=== PATIENT | female | born 1995 | race Hispanic/Latino ===

== ENCOUNTER 2021-09-22 19:45 | Emergency (ER) | payer OTHER ==
[~2021-09-22] VITALS: Ht 162.6 cm; Wt 103.0 kg
[2021-09-22 20:48] LABS: APPEARANCE,URINE Clear (CLEAR); BILIRUBIN,URINE Negative (NEGATIVE); COLOR,URINE Yellow (YELLOW); GLUCOSE, URINE (UA) Negative (NEGATIVE); KETONES,URINE 15 mg/dL (NEGATIVE); LEUKOCYTE ESTERASE ,URINE Negative (NEGATIVE); NITRATE,URINE Negative (NEGATIVE); OCCULT BLOOD,URINE Negative (NEGATIVE); PROTEIN,URINE Negative (NEGATIVE); UROBILINOGEN,URINE 0.2 mg/dL (0.2-1.0)
[2021-09-22 20:52] LABS: HCG,QUAL RESULT POSITIVE (NEGATIVE)
[2021-09-22] MEDS ORDERED: ACETAMINOPHEN 500 MG TABLET ONE (21:04)
[2021-09-22] MEDS ORDERED: 0.9%NACL 1000ML 1,000 ML IV ONE ×2 (21:22→21:30)
[2021-09-22] MEDS ORDERED: ONDANSETRON 4MG INJ ONE (21:22)
[2021-09-22] MEDS ORDERED: ONDANSETRON 4MG INJ IVP ONE (21:30)
[2021-09-22] MEDS ORDERED: ACETAMINOPHEN 500 MG TABLET PO ONE (21:30)
[2021-09-22] MEDS ORDERED: ONDA4TAB10 PO (22:15)
[2021-09-22] MEDS ORDERED: ACET-66 PO (22:15)
[2021-09-22 23:15] VITALS: BP 99/60
== END 2021-09-22 23:18 | disposition home or self-care (01) ==
LOC: EDH 19:45
DX: U07.1 COVID-19 (principal); J45.909 Unspecified asthma, uncomplicated; Z79.899 Other long term (current) drug therapy
CPT/HCPCS: 81003; 81025; 87635; 96361; 96374; 99283; C9803; J2405; J7030

== ENCOUNTER 2022-01-11 10:53 | Observation (INO) | payer MEDICAID, OTHER ==
[~2022-01-11] VITALS: Ht 162.6 cm; Wt 102.5 kg
[~2022-01-11 10:53] MED LIST: ACET-66 PO; ONDA4TAB10 PO
[2022-01-11 10:55] VITALS: BP 110/62
[2022-01-11 11:52] LABS: APPEARANCE,URINE CLEAR (CLEAR); BILIRUBIN,URINE NEGATIVE (NEGATIVE); COLOR,URINE YELLOW (YELLOW); GLUCOSE, URINE (UA) NEGATIVE (NEGATIVE); KETONES,URINE NEGATIVE (NEGATIVE); LEUKOCYTE ESTERASE ,URINE NEGATIVE (NEGATIVE); NITRATE,URINE NEGATIVE (NEGATIVE); OCCULT BLOOD,URINE NEGATIVE (NEGATIVE); PH,URINE 5.5 (5.0-8.0); PROTEIN,URINE NEGATIVE (NEGATIVE); UROBILINOGEN,URINE 0.2 mg/dL (0.2-1.0)
[2022-01-11] MEDS ORDERED: LACTATED RINGERS 1000ML IV SCH (12:00)
== END 2022-01-11 13:17 | disposition home or self-care (01) ==
LOC: EDH 10:53 → LDH 10:54
PROVIDERS: ADMIT Internal Medicine; ATTEND Internal Medicine
DX: O26.893 Other specified pregnancy related conditions, third trimester (principal); R10.30 Lower abdominal pain, unspecified; O99.891 Other specified diseases and conditions complicating pregnancy; M54.50 Low back pain, unspecified; Z3A.28 28 weeks gestation of pregnancy
CPT/HCPCS: 96360; 59025; 81003; G0378 ×2; G0379

== ENCOUNTER 2022-04-26 00:39 | Emergency (ER) | payer MEDICAID ==
[~2022-04-26] VITALS: Ht 162.6 cm; Wt 99.8 kg
[2022-04-26 00:56] LABS: BASOPHILS % (AUTO) 0.6 % (0.0-5.0); EOSINOPHILS % (AUTO) 2.3 % (0.0-8.0); HEMATOCRIT 38.3 % (36-48); LYMPHOCYTES % (AUTO) 57.7 % (21.0-51.0); MEAN CORPUSCULAR HEMOGLOBIN 26.7 pg (27.0-33.0); MEAN CORPUSCULAR HGB CONC 32.1 g/dL (32.0-36.0); MEAN CORPUSCULAR VOLUME 83.1 fL (79-99); NEUTROPHILS % (AUTO) 31.8 % (40.0-77.0); PLATELET COUNT (AUTO) 408 K/uL (130-400); RED BLOOD CELL COUNT(AUTO) 4.61 MIL/uL (4.00-5.50); RED CELL DISTRIBUTION WIDTH 13.2 % (11.0-15.5); WHITE BLOOD COUNT (AUTO) 9.3 K/uL (4.8-10.8)
[2022-04-26] MEDS ORDERED: MORPHINE 4 MG SYG IVP ONE (01:00)
[2022-04-26] MEDS ORDERED: ONDANSETRON 4MG INJ IVP ONE (01:00)
[2022-04-26 01:03] LABS: APPEARANCE,URINE CLEAR (CLEAR); BILIRUBIN,URINE NEGATIVE (NEGATIVE); COLOR,URINE YELLOW (YELLOW); GLUCOSE, URINE (UA) NEGATIVE (NEGATIVE); KETONES,URINE NEGATIVE (NEGATIVE); LEUKOCYTE ESTERASE ,URINE 250 Leu/uL (NEGATIVE); NITRATE,URINE NEGATIVE (NEGATIVE); OCCULT BLOOD,URINE SMALL (NEGATIVE); PROTEIN,URINE 20 mg/dL (NEGATIVE)
[2022-04-26 01:14] LABS: MUCUS,URINE RARE LPF (None Seen); RBC,URINE 26-50 /HPF (0-1); SQUAMOUS EPITHELIAL CELL,UR FEW /HPF (0-2)
[2022-04-26 01:27] LABS: CREATININE 0.7 mg/dL (0.5-1.5); POTASSIUM 3.2 mmol/L (3.5-5.1)
[2022-04-26 01:31] LABS: ALBUMIN 3.7 g/dL (3.5-5.0); TOTAL PROTEIN, SERUM 7.9 g/dL (6.0-8.3)
[2022-04-26] MEDS ORDERED: CEFTRIAXONE 1G VIAL ONE (01:52)
[2022-04-26] MEDS ORDERED: KETOROLAC 30MG VIAL (30MG/ML) ONE (01:52)
[2022-04-26] MEDS ORDERED: KETOROLAC 30MG VIAL (30MG/ML) IVP ONE (02:00)
[2022-04-26] MEDS ORDERED: CEFTRIAXONE 1G VIAL IVP ONE (02:00)
[2022-04-26] MEDS ORDERED: LACTATED RINGERS 1000ML 1,000 ML IV ONE ×2 (02:00)
[2022-04-26] MEDS ORDERED: IBUP-2070 PO (03:13)
[2022-04-26] MEDS ORDERED: CEPH500B PO (03:13)
[2022-04-26 03:25] VITALS: BP 115/67
[2022-04-26] MEDS ORDERED: KCL 20 MEQ ERTAB PO ONE (03:30)
== END 2022-04-26 03:33 | disposition home or self-care (01) ==
LOC: EDH 00:39
DX: K80.50 Calculus of bile duct without cholangitis or cholecystitis without obstruction (principal); Z79.1 Long term (current) use of non-steroidal anti-inflammatories (NSAID); E87.6 Hypokalemia
CPT/HCPCS: 99284; 96374; 96375; 76705; 96361; 80053; 83690; 85025; 87077; 87088; 87186; 81001; 81025; 36415; J7120; J0696; J2405; J2270; J1885

== ENCOUNTER 2022-04-28 03:54 | Emergency (ER) | payer MEDICAID ==
[~2022-04-28] VITALS: Ht 162.6 cm; Wt 100.7 kg
[~2022-04-28 03:54] MED LIST changes: +CEPH500B PO; +IBUP-2070 PO
[2022-04-28] MEDS ORDERED: MORPHINE 2 MG SYG IVP ONE (04:30)
[2022-04-28] MEDS ORDERED: LACTATED RINGERS 1000ML 1,000 ML IV ONE (04:30)
[2022-04-28] MEDS ORDERED: ONDANSETRON 4MG INJ IVP ONE (04:30)
[2022-04-28] MEDS ORDERED: KETOROLAC 15MG/ML VIAL (15MG/ML) IV ONE (04:30)
[2022-04-28 05:12] LABS: BASOPHILS % (AUTO) 0.8 % (0.0-5.0); EOSINOPHILS % (AUTO) 2.3 % (0.0-8.0); HEMATOCRIT 36.2 % (36-48); LYMPHOCYTES % (AUTO) 33.8 % (21.0-51.0); MEAN CORPUSCULAR HEMOGLOBIN 26.6 pg (27.0-33.0); MEAN CORPUSCULAR HGB CONC 32.6 g/dL (32.0-36.0); MEAN CORPUSCULAR VOLUME 81.5 fL (79-99); NEUTROPHILS % (AUTO) 51.1 % (40.0-77.0); PLATELET COUNT (AUTO) 329 K/uL (130-400); RED BLOOD CELL COUNT(AUTO) 4.44 MIL/uL (4.00-5.50); RED CELL DISTRIBUTION WIDTH 13.1 % (11.0-15.5)
[2022-04-28 05:24] LABS: CREATININE 0.7 mg/dL (0.5-1.5); POTASSIUM 3.7 mmol/L (3.5-5.1)
[2022-04-28 05:29] LABS: ALBUMIN 3.7 g/dL (3.5-5.0); TOTAL PROTEIN, SERUM 7.4 g/dL (6.0-8.3)
[2022-04-28] MEDS ORDERED: ONDA-104 PO (06:10)
[2022-04-28] MEDS ORDERED: OMEP40CA21 PO (06:10)
[2022-04-28] MEDS ORDERED: IBUP-1493 PO (06:10)
[2022-04-28 06:34] VITALS: BP 108/65
== END 2022-04-28 06:41 | disposition home or self-care (01) ==
LOC: EDH 03:54
DX: K80.20 Calculus of gallbladder without cholecystitis without obstruction (principal); Z79.899 Other long term (current) drug therapy
CPT/HCPCS: 99284; 96374; 76705; 96375; 82150; 80053; 83690; 85025; 36415; J7120; J2405; J1885

== ENCOUNTER 2022-06-26 03:09 | Emergency (ER) | payer MEDICAID ==
[~2022-06-26] VITALS: Ht 162.6 cm; Wt 96.8 kg
[~2022-06-26 03:09] MED LIST changes: +IBUP-1493 PO; +OMEP40CA21 PO; +ONDA-104 PO
[2022-06-26] MEDS ORDERED: ONDANSETRON 4MG INJ IVP ONE (03:30)
[2022-06-26] MEDS ORDERED: 0.9%NACL 1000ML 1,000 ML IV SCH (03:30)
[2022-06-26 03:38] LABS: BASOPHILS % (AUTO) 0.5 % (0.0-5.0); EOSINOPHILS % (AUTO) 1.5 % (0.0-8.0); HEMATOCRIT 38.6 % (36-48); LYMPHOCYTES % (AUTO) 39.9 % (21.0-51.0); MEAN CORPUSCULAR HEMOGLOBIN 26.8 pg (27.0-33.0); MEAN CORPUSCULAR HGB CONC 32.1 g/dL (32.0-36.0); MEAN CORPUSCULAR VOLUME 83.5 fL (79-99); NEUTROPHILS % (AUTO) 51.6 % (40.0-77.0); PLATELET COUNT (AUTO) 290 K/uL (130-400); RED BLOOD CELL COUNT(AUTO) 4.62 MIL/uL (4.00-5.50); RED CELL DISTRIBUTION WIDTH 13.2 % (11.0-15.5); WHITE BLOOD COUNT (AUTO) 9.9 K/uL (4.8-10.8)
[2022-06-26 03:44] LABS: APPEARANCE,URINE CLEAR (CLEAR); BILIRUBIN,URINE NEGATIVE (NEGATIVE); COLOR,URINE LIGHT-YELLOW (YELLOW); GLUCOSE, URINE (UA) NEGATIVE (NEGATIVE); KETONES,URINE NEGATIVE (NEGATIVE); LEUKOCYTE ESTERASE ,URINE NEGATIVE Leu/uL (NEGATIVE); NITRATE,URINE NEGATIVE (NEGATIVE); OCCULT BLOOD,URINE NEGATIVE (NEGATIVE); PROTEIN,URINE 30 mg/dL (NEGATIVE); UROBILINOGEN,URINE 0.2 mg/dL (0.2-1.0)
[2022-06-26 03:48] LABS: HCG,QUALITATIVE URINE NEGATIVE (NEGATIVE)
[2022-06-26 03:49] LABS: MUCUS,URINE RARE LPF (None Seen); SQUAMOUS EPITHELIAL CELL,UR RARE /HPF (0-2); WBC,URINE 0-1 /HPF (0-1)
[2022-06-26 03:56] LABS: CREATININE 0.6 mg/dL (0.5-1.5); POTASSIUM 3.5 mmol/L (3.5-5.1)
[2022-06-26 04:00] LABS: ALBUMIN 4.3 g/dL (3.5-5.0); TOTAL PROTEIN, SERUM 7.8 g/dL (6.0-8.3)
[2022-06-26 04:32] LABS: INR 0.93 (0.85-1.15); PROTHROMBIN TIME 9.7 SEC (9.6-11.6)
[2022-06-26 04:34] LABS: PARTIAL THROMBOPLASTIN TIME 26.2 SEC (26.3-35.5)
[2022-06-26 06:32] VITALS: BP 103/62
[2022-06-26] MEDS ORDERED: IBUP-1493 PO (06:32)
[2022-06-26] MEDS ORDERED: ONDA-104 PO (06:32)
== END 2022-06-26 06:38 | disposition home or self-care (01) ==
LOC: EDH 03:09
DX: K80.20 Calculus of gallbladder without cholecystitis without obstruction (principal); E03.9 Hypothyroidism, unspecified; Z79.899 Other long term (current) drug therapy
CPT/HCPCS: 99285; 96374; 76705; 96361; 80053; 83690; 85025; 85610; 85730; 81001; 81025; 36415; J7030; J2405

== ENCOUNTER 2022-07-23 06:28 | Day surgery (SDC) | payer MEDICAID ==
[2022-07-16 09:55] VITALS: BP 115/63
[2022-07-16 09:58] LABS: BASOPHILS % (AUTO) 0.6 % (0.0-5.0); EOSINOPHILS % (AUTO) 1.1 % (0.0-8.0); LYMPHOCYTES % (AUTO) 38.8 % (21.0-51.0); MEAN CORPUSCULAR HEMOGLOBIN 26.9 pg (27.0-33.0); MEAN CORPUSCULAR HGB CONC 31.9 g/dL (32.0-36.0); MEAN CORPUSCULAR VOLUME 84.1 fL (79-99); MONOCYTES % (AUTO) 6.3 % (3.0-13.0); NEUTROPHILS % (AUTO) 52.9 % (40.0-77.0); PLATELET COUNT (AUTO) 306 K/uL (130-400); RED BLOOD CELL COUNT(AUTO) 4.28 MIL/uL (4.00-5.50); RED CELL DISTRIBUTION WIDTH 13.2 % (11.0-15.5); WHITE BLOOD COUNT (AUTO) 6.4 K/uL (4.8-10.8)
[2022-07-16 10:10] LABS: ALBUMIN 4.2 g/dL (3.5-5.0); BILIRUBIN,DIRECT 0.1 mg/dL (0.0-0.3); CREATININE 0.5 mg/dL (0.5-1.5); POTASSIUM 4.1 mmol/L (3.5-5.1); TOTAL PROTEIN, SERUM 7.7 g/dL (6.0-8.3)
[2022-07-23] VITALS (17 sets, daily range): BP systolic 116–144; BP diastolic 70–94
[~2022-07-23] VITALS: Ht 162.6 cm; Wt 97.1 kg
[~2022-07-23 06:28] MED LIST changes: -ACET-66 PO; -CEPH500B PO; -IBUP-1493 PO; -IBUP-2070 PO; +LEVO50CA4 PO; -OMEP40CA21 PO; -ONDA-104 PO; -ONDA4TAB10 PO; +PNV1TABL90 PO
[2022-07-23] MEDS ORDERED: CEFAZOLIN SODIUM 2 GM VIAL ONE (06:57)
[2022-07-23] MEDS ORDERED: FAMOTIDINE 20MG VIAL IV ONE (07:12)
[2022-07-23] MEDS ORDERED: HYDROMORPHONE 1 MG INJ ONE (07:13)
[2022-07-23] MEDS ORDERED: ROCURONIUM 10MG/1ML SYR 10 MG/ML ML ONE (07:18)
[2022-07-23] MEDS ORDERED: LIDOCAINE PF 100MG/5ML (2%) SYRINGE 5ML ONE (07:18)
[2022-07-23] MEDS ORDERED: SUCCINYLCHOLINE 200MG/10ML SYR ONE (07:18)
[2022-07-23] MEDS ORDERED: GLYCOPYRROLATE 1 MG/5 ML SYRINGE ONE (07:18)
[2022-07-23] MEDS ORDERED: PROPOFOL 10 MG/ML 20ML VIAL IV ONE (07:18)
[2022-07-23] MEDS ORDERED: FENTANYL CITRATE PF 50 MCG/1 ML 2ML VIAL ONE ×3 (07:19→09:35)
[2022-07-23] MEDS ORDERED: PHENYLEPHRINE HCL 10 MG/ML 1ML VIAL IV ONE (07:22)
[2022-07-23] MEDS ORDERED: BUPIVACAINE/EPI/PF 0.5% 30ML VIAL IJ SCH (07:30)
[2022-07-23] MEDS ORDERED: CEFAZOLIN SODIUM 2 GM VIAL IVPB ONE (07:55)
[2022-07-23] MEDS ORDERED: IOHEXOL-350 50ML VIAL IV ONE (07:56)
[2022-07-23] MEDS ORDERED: CEFAZOLIN SODIUM 2 GM VIAL IVPB PRN (08:00)
[2022-07-23] MEDS ORDERED: LACTATED RINGERS 1000ML 1,000 ML IV SCH (08:00)
[2022-07-23] MEDS ORDERED: BUPIVACAINE/EPI/PF 0.5% 30ML VIAL IJ ONE (08:25)
[2022-07-23] MEDS ORDERED: ONDANSETRON 4MG INJ ONE (08:52)
[2022-07-23] MEDS ORDERED: NEOSTIGMINE 5MG/5ML SYR IV ONE (08:52)
== END 2022-07-23 11:05 | disposition home or self-care (01) ==
LOC: DAH 06:28
PROVIDERS: ATTEND Surgery
DX: K80.10 Calculus of gallbladder with chronic cholecystitis without obstruction (principal); Z20.822 Contact with and (suspected) exposure to COVID-19; K82.8 Other specified diseases of gallbladder; J45.909 Unspecified asthma, uncomplicated; E03.9 Hypothyroidism, unspecified; E66.9 Obesity, unspecified; I49.8 Other specified cardiac arrhythmias; Z82.3 Family history of stroke; Z82.49 Family history of ischemic heart disease and other diseases of the circulatory system; Z98.890 Other specified postprocedural states; Z68.36 Body mass index [BMI] 36.0-36.9, adult
CPT/HCPCS: 80076; 80048; 84703; 85025; 87426; 36415; 71045; 93005; 47563; 81025; 74300; A6260; J7030; C1758; J7120; J3010 ×3; J1170; J0330; J3490 ×3; J2710; J2405; J2370; Q9967; J0690 ×2; A4649 ×2; A4930 ×2; A4215; A4223; A4222; A4221; A4663; S0028; S0020 ×2; A4600; J2001; J2704

== ENCOUNTER 2022-07-23 16:49 | Emergency (ER) | payer MEDICAID ==
[~2022-07-23] VITALS: Ht 162.6 cm; Wt 97.1 kg
[2022-07-23 17:27] LABS: BASOPHILS % (AUTO) 0.3 % (0.0-5.0); LYMPHOCYTES % (AUTO) 13.3 % (21.0-51.0); MEAN CORPUSCULAR HEMOGLOBIN 26.8 pg (27.0-33.0); MEAN CORPUSCULAR HGB CONC 32.4 g/dL (32.0-36.0); MEAN CORPUSCULAR VOLUME 82.8 fL (79-99); MONOCYTES % (AUTO) 4.1 % (3.0-13.0); NEUTROPHILS % (AUTO) 81.8 % (40.0-77.0); PLATELET COUNT (AUTO) 351 K/uL (130-400); RED BLOOD CELL COUNT(AUTO) 4.47 MIL/uL (4.00-5.50); RED CELL DISTRIBUTION WIDTH 13.2 % (11.0-15.5); WHITE BLOOD COUNT (AUTO) 15.1 K/uL (4.8-10.8)
[2022-07-23] MEDS ORDERED: KETOROLAC 30MG VIAL (30MG/ML) IVP ONE (17:30)
[2022-07-23 17:39] LABS: CREATININE 0.6 mg/dL (0.5-1.5); POTASSIUM 4.2 mmol/L (3.5-5.1)
[2022-07-23 17:43] LABS: ALBUMIN 4.3 g/dL (3.5-5.0); TOTAL PROTEIN, SERUM 7.6 g/dL (6.0-8.3)
[2022-07-23 19:08] VITALS: BP 123/80
== END 2022-07-23 19:07 | disposition home or self-care (01) ==
LOC: EDH 16:49
DX: R20.0 Anesthesia of skin (principal); M79.641 Pain in right hand; E03.9 Hypothyroidism, unspecified; Z90.49 Acquired absence of other specified parts of digestive tract; Z79.899 Other long term (current) drug therapy
CPT/HCPCS: 99283; 96374; 80053; 85025; 82948; 36415; J1885

== ENCOUNTER 2022-07-24 23:37 | Emergency (ER) | payer MEDICAID ==
[~2022-07-24] VITALS: Ht 162.6 cm; Wt 97.1 kg
[2022-07-25] MEDS ORDERED: ONDANSETRON 4MG INJ IVP ONE (01:30)
[2022-07-25] MEDS ORDERED: MORPHINE 4 MG SYG IVP ONE (01:30)
[2022-07-25 01:54] LABS: BASOPHILS % (AUTO) 0.4 % (0.0-5.0); EOSINOPHILS % (AUTO) 1.7 % (0.0-8.0); HEMATOCRIT 30.3 % (36-48); LYMPHOCYTES % (AUTO) 32.2 % (21.0-51.0); MEAN CORPUSCULAR HEMOGLOBIN 27.1 pg (27.0-33.0); MEAN CORPUSCULAR HGB CONC 32.3 g/dL (32.0-36.0); MEAN CORPUSCULAR VOLUME 83.7 fL (79-99); MONOCYTES % (AUTO) 8.4 % (3.0-13.0); PLATELET COUNT (AUTO) 286 K/uL (130-400); RED BLOOD CELL COUNT(AUTO) 3.62 MIL/uL (4.00-5.50); RED CELL DISTRIBUTION WIDTH 13.1 % (11.0-15.5)
[2022-07-25 01:55] LABS: APPEARANCE,URINE CLEAR (CLEAR); BILIRUBIN,URINE NEGATIVE (NEGATIVE); COLOR,URINE COLORLESS (YELLOW); GLUCOSE, URINE (UA) NEGATIVE (NEGATIVE); KETONES,URINE NEGATIVE (NEGATIVE); LEUKOCYTE ESTERASE ,URINE NEGATIVE Leu/uL (NEGATIVE); NITRATE,URINE NEGATIVE (NEGATIVE); OCCULT BLOOD,URINE NEGATIVE (NEGATIVE); PH,URINE 5.5 (5.0-8.0); PROTEIN,URINE NEGATIVE (NEGATIVE); UROBILINOGEN,URINE 0.2 mg/dL (0.2-1.0)
[2022-07-25 02:04] LABS: CREATININE 0.5 mg/dL (0.5-1.5); POTASSIUM 3.9 mmol/L (3.5-5.1)
[2022-07-25 02:08] LABS: ALBUMIN 3.4 g/dL (3.5-5.0); TOTAL PROTEIN, SERUM 6.5 g/dL (6.0-8.3)
[2022-07-25 03:26] VITALS: BP 100/59
== END 2022-07-25 03:43 | disposition home or self-care (01) ==
LOC: EDH 23:37
DX: G89.18 Other acute postprocedural pain (principal); R10.11 Right upper quadrant pain; E03.9 Hypothyroidism, unspecified; Z90.89 Acquired absence of other organs; Z98.890 Other specified postprocedural states
CPT/HCPCS: 99284; 80053; 83690; 85025; 81003; 36415; 96374; 96375; J2405; J2270